=== PATIENT | female | born 1950 | race Caucasian/White ===

== ENCOUNTER 2018-01-01 16:18 | Emergency (ER) | payer BC, OTHER ==
[~2018-01-01] VITALS: Ht 170.2 cm; Wt 101.1 kg
[2018-01-01 17:07] LABS: HEMATOCRIT 37.8 % (36.0-46.0); HEMOGLOBIN 13.1 G/DL (11.9-15.5); MCH 31.2 PG (29.0-34.0); MCHC 34.7 G/DL (30.0-36.0); PLATELET COUNT 259 K/uL (156-360); RBC DIS.WIDTH-CV 12.1 % (11.8-14.6); RBC DIS.WIDTH-SD 39.8 % (39-53); WHITE BLOOD COUNT 12.7 K/uL (4.1-10.2)
[2018-01-01 17:17] LABS: CHLORIDE 106 mEq/L (99-109); POTASSIUM 4.2 mEq/L (3.7-5.4); SODIUM 139 mEq/L (136-147)
[2018-01-01 17:18] LABS: GLUCOSE 96 mg/dL (70-99)
[2018-01-01 17:22] LABS: GFR ESTIMATE (CALCULATED) 59 mL/min/
[2018-01-01 17:23] LABS: UREA NITROGEN (BUN) 24 mg/dL (9-23)
[2018-01-01 17:31] LABS: TROP-I INTERPRETATION NEGATIVE; TROPONIN-I < 0.01 ng/mL (0.0-0.30)
[2018-01-01 19:57] LABS: APPEARANCE CLEAR ((CLEAR)); BILIRUBIN NEGATIVE; BLOOD NEGATIVE; COLOR STRAW ((YELLOW)); GLUCOSE (STRIP) NEGATIVE; KETONES NEGATIVE; LEUKOCYTES NEGATIVE; NITRITE NEGATIVE; PROTEIN (STRIP) NEGATIVE; SPECIFIC GRAVITY 1.011 (1.000-1.030); UCUL ADDED? NO; UROBILINOGEN 0.2 MG/DL (0.2-1.0)
[2018-01-01 20:57] VITALS: BP 128/97
== END 2018-01-01 20:59 | disposition home or self-care (01) ==
LOC: EME 16:18
PROVIDERS: Emergency Medicine
DX: M54.5 Low back pain (principal); R20.2 Paresthesia of skin; M79.604 Pain in right leg
CPT/HCPCS: 71046; 74176; 80048; 81003; 84484; 85027; 93005; 93971; 99281; 99284